=== PATIENT | female | born 1990 | race Caucasian/White ===

== ENCOUNTER 2016-06-26 05:39 | Observation (INO) | payer MEDICAID ==
[~2016-06-26] VITALS: Ht 30.5 cm; Wt 0.5 kg
[2016-06-26] MEDS ORDERED: TERBUTALINE SULFATE 1 MG/ML 1ML VIAL SC ONE ×2 (06:30→06:31)
[2016-06-26] MEDS ORDERED: BETAMETHASONE ACET (6MG/ML) 5ML VIAL IM ONE (06:30)
[2016-06-26] MEDS ORDERED: SODIUM CHLORIDE 0.9% 1,000 ML IV SCH (06:30)
[2016-06-26] MEDS ORDERED: BETAMETHASONE ACET (6MG/ML) 5ML VIAL ONE (06:31)
[2016-06-26 07:09] LABS: Basophils # (auto) 0 uL; Basophils % (auto) 0.3 % (0.0-2.0); Eosinophils # (auto) 0 uL; Eosinophils % (auto) 0.2 % (0.0-7.0); Hematocrit 34.1 % (36.0-46.0); Hemoglobin 11.6 g/dL (12.2-16.2); Lymphocytes # (auto) 1.3 uL; Lymphocytes % (auto) 11.2 % (10.0-50.0); Mean Corpuscular Hemoglobin 29.7 pg (28.0-32.0); Mean Corpuscular Hgb Conc. 33.9 g/dL (32.0-36.0); Mean Corpuscular Volume 87.6 fL (80.0-100.0); Mean Platelet Volume 7.9 fL (7.4-10.4); Monocytes # (auto) 0.5 uL; Monocytes % (auto) 4.2 % (0.0-12.0); Neutrophils # (auto) 10.1 uL; Neutrophils % (auto) 84.1 % (37.0-80.0); Platelet Count (auto) 279 10^3/uL (140-450); Red Cell Distribution Width 14.3 % (11.6-16.0)
[2016-06-26] MEDS ORDERED: MAGNESIUM SULFATE 40MG/ML 1,000 ML IV ONE (07:30)
[2016-06-26 07:32] LABS: Albumin 2.4 g/dL (3.4-5.0); Alkaline Phosphatase 53 U/L (45-117); Anion Gap 8 (5-15); Aspartate Aminotransferase 14 U/L (15-37); BUN/Creatinine Ratio 15.7; Bilirubin, Total < 0.1 mg/dL (0.2-1.0); Blood Urea Nitrogen 8 mg/dL (7-18); Calcium 8.2 mg/dL (8.5-10.1); Carbon Dioxide 26 mmol/L (21-32); Chloride 109 mmol/L (98-107); GFR African American 186 mL/min; GFR Non-African American 154 mL/min; Glucose 99 mg/dL (74-106); Potassium 4.3 mmol/L (3.5-5.1); Sodium 143 mmol/L (136-145); Total Protein 6.3 g/dL (6.4-8.2)
[2016-06-26] MEDS ORDERED: MAGNESIUM SULFATE 40MG/ML 1,000 ML IV SCH (07:36)
[2016-06-26 07:57] LABS: INR 0.91 (0.9-1.15); Partial Thromboplastin Time 26.3 sec (22.64-33.71); Prothrombin Time 9.4 sec (9.37-12.3)
== END 2016-06-26 08:57 | disposition home or self-care (01) | DRG 566 ==
LOC: LDRP 05:39
PROVIDERS: ADMIT Specialist; ATTEND Specialist
DX: O46.92 Antepartum hemorrhage, unspecified, second trimester (principal); O44.12 Complete placenta previa with hemorrhage, second trimester; Z87.891 Personal history of nicotine dependence; Z3A.27 27 weeks gestation of pregnancy
CPT/HCPCS: 36415; 59025; 76805; 80053; 81002; 85025; 85610; 85730; 86850; 86870; 86900; 86901; 96361; 96365; 96372; G0378; J0702; J3105; J3475; 96366